=== PATIENT | female | born 1960 | race American Indian/Alaskan Native ===

== ENCOUNTER 2019-01-27 07:37 | Day surgery (SDC) | payer MEDICAID, OTHER ==
--- NOTE | 2019-01-27 07:30 | Anesthesia Consultation ---
Anesthesia Consult and Med Hx Date of service: 01/27/19 - Airway Anesthetic Teeth Evaluation: Partials ROM Head & Neck: Adequate Mental/Hyoid Distance: Adequate Mallampati Class: Class II Intubation Access Assessment: Probably Good - Pulmonary Exam CTA: Yes - Cardiac Exam Cardiac Exam: RRR - Pre-Operative Health Status ASA Pre-Surgery Classification: ASA3 Proposed Anesthetic Plan: General - Pulmonary Hx Smoking: No Hx Respiratory Symptoms: No Hx Sleep Apnea: No - Cardiovascular System Hx Hypertension: No Hx Heart Attack/AMI: No Hx Cardia Arrhythmia: No Hx Valvular Heart Disease: No (MUGA TESTING 01/2018) - Central Nervous System Hx Neuromuscular Disorder: No Hx Psychiatric Problems: No - Gastrointestinal Hx Gastroesophageal Reflux Disease: No - Endocrine Hx Renal Disease: No Hx Liver Disease: No Hx Insulin Dependent Diabetes: No Hx Thyroid Disease: No - Hematic Hx Sickle Cell Disease: No - Other Systems Hx Alcohol Use: Yes (OCCA) Hx Substance Use: No Hx Cancer: Yes Hx Obesity: Yes (BMI 56.7) - Additional Comments Anesthesia Medical History Comments: No GAC, No FHAC
--- NOTE | 2019-01-27 07:31 | Anesthesia Day of Surgery ---
Anesthesia Day of Surgery - Day of Surgery Patient Examined: Yes Patient H&P Reviewed: Yes Patient is NPO: Yes Beta Blockers: No (N/A) Cardiac Clearance: No (N/A) Pulmonary Clearance: No (N/A)
[~2019-01-27 07:37] MED LIST: ANCEF/STERILE WATER 2 GM/20 ML 2 GM/20 ML SYRINGE IV NR; DIPRIVAN 10 MG/ML IV ONE; HEPARIN 10,000 UNITS/10 ML ONE; LACTATED RINGERS 1,000 ML IV SCH; MARCAINE 0.5% INFILTRATI ONE; NACL 0.9% 0 ML ONE; NACL 0.9% 250ML 250 ML ONE; NACL P/F VIAL (10 ML) 10 ML ONE; NEURONTIN PO SCH; SUBLIMAZE ONE; XYLOCAINE 1% 20 mL ONE; XYLOCAINE MPF 2% ONE
[2019-01-27] MEDS ORDERED: SUBLIMAZE IV PRN (07:50)
[2019-01-27] MEDS ORDERED: HEPARIN 10,000 UNITS/10 ML IV ONE (08:23)
[2019-01-27] MEDS ORDERED: MARCAINE 0.5% INFILTRATI ONE (08:24)
[2019-01-27] MEDS ORDERED: NACL 0.9% 250ML IV ONE (08:24)
[2019-01-27] MEDS ORDERED: XYLOCAINE 1% 20 mL INFILTRATI ONE (08:25)
[2019-01-27] MEDS ORDERED: NACL 0.9% IR ONE (08:26)
--- NOTE | 2019-01-27 09:06 | Short Stay Summary ---
Short Stay Documentation Date of service: 01/27/19 - History H&P: obtained from office - Allergies and Medications Current Medications: Allergies codeine Adverse Reaction (Verified 01/25/19 15:44) Nausea Home Medications Medication Instructions Recorded Confirmed Last Taken Type Desloratadine/Pseudoephedrine 1 each PO BID 01/25/19 01/27/19 01/26/19 10:00 History [Clarinex-D 12 Hour Tablet] Ondansetron (Nf) [Zofran TAB] 8 mg PO PRN PRN 01/25/19 01/25/19 Unknown History Active Medications Fentanyl (Sublimaze) 50 mcg IV Q5MIN PRN PRN Reason: Pain , Severe (7-10) Stop: 01/27/19 20:00 Cefazolin Sodium (Ancef/Sterile Water 2 Gm/20 Ml) 2 gm in 20 mls @ 80 mls/hr IV PREOP NR; Protocol Stop: 01/27/19 23:59 Lactated Ringer's (Lactated Ringers) 1,000 mls @ 125 mls/hr IV DIRECT MIGEL Last Admin: 01/27/19 07:32 Dose: 125 mls/hr Documented by: - Physical exam Integumentary: no rash, no abnormal pigmentation Lungs: Normal air movement Neurological: Normal speech - Brief post op/procedure progress note Date of procedure: 01/27/19 (dictation:[id number]) Pre-op diagnosis: right breast cancer Post-op diagnosis: same Procedure: US guided port placement Anesthesia: GETA Findings: enlarged heart. sharp turn at union of innominate veins and SVC. Surgeon: MICHAEL ZHAO Estimated blood loss: minimal Pathology: none Condition: stable - Hospital course Hospital course: uneventful - Disposition Condition at discharge: Stable Disposition: DC-01 TO HOME OR SELFCARE Short Stay Discharge Plan Activity: no restrictions, other Diet: regular Wound: open to air, keep clean and dry, other (apply ice pack to left upper chest/neck for 10-15min/4-5 times a day. May shower tomorrow. Pat dry wounds) Special Instructions: no heavy lifting (or strenuous activity for 1 week) Additional Instructions: may use tylenol or ibuprofen for pain - follow instructions on bottle Follow up with: RON JOHNSON [Other] - 7 Days
[2019-01-27] MEDS ORDERED: TORADOL ONE (09:15)
[2019-01-27] MEDS ORDERED: DECADRON ONE (09:15)
[2019-01-27] MEDS ORDERED: ZOFRAN ONE (09:15)
--- NOTE | 2019-01-27 09:28 | Fluoroscopy Report ---
Single view chest: Next History: Right breast cancer. Findings: Mild cardiomegaly. Trachea is midline. Stable left [id number] with the tip in the proximal superior vena cava. No pneumothorax. Right perihilar infiltrate. Normal CP angles. Impression: Right perihilar infiltrate probably discoid atelectasis or pneumonitis. Stable left port.
--- NOTE | 2019-01-27 11:47 | Operative Report ---
PREOPERATIVE DIAGNOSIS: Right breast cancer. POSTOPERATIVE DIAGNOSIS: Right breast cancer. PROCEDURE: 1. Insertion of tunneled central venous catheter with subcutaneous port. 2. Ultrasound guidance for vascular access. ATTENDING PHYSICIAN: Merlyn Shafer MD ANESTHESIA: General. ESTIMATED BLOOD LOSS: Less than 10 mL. FLUIDS: 700 mL. FINDINGS: The patient had an enlarged heart. She was also noted to have probably a sharp turn where the left innominate comes into the SVC. The guidewire took multiple passes in order to go down into the SVC and subsequently into the heart. IMPLANT: Smart Port. COMPLICATIONS: None. DISPOSITION: Stable, transferred to Recovery Room. INDICATIONS: This is a 58-year-old female who was recently diagnosed with right breast cancer. The patient was assessed to be in need for chemotherapy. Request was made for port placement. Procedure, risks, benefits were explained to the patient. Risks included but were not limited to infection, bleeding, pain, injury to surrounding structures, possible need for further procedures in the future. The patient understood and consented. OPERATIVE NOTE: The patient was brought to the operating room and placed on the table in supine position. After adequate general anesthesia was established, roll was placed behind the shoulders. SCDs were in place. Antibiotics have been administered. Sterile prep and drape was done, time-out was called. Under ultrasound guidance, I evaluated both the left internal jugular vein and the subclavian vein. The left internal jugular vein was easily identified, widely patent. There was no evidence of any stenosis or clots. The left subclavian vein was difficult to identify and therefore not a reasonable target. We proceeded to go with the left internal jugular vein. 1% lidocaine and 0.5% Marcaine were used to anesthetize the planned access point. A small incision was made. Under ultrasound guidance, I followed echogenic needle into the left internal jugular vein. I could see the needle going to the vein and then I positioned the tip in the center of the vein, had good aspiration of venous blood. Guidewire was easily passed. We checked with fluoroscopy. The position of the guidewire as mentioned above, it got hung up at the junction of the innominate vein and SVC. Multiple passes were required. Ultimately, I felt that as we were clearly in the venous portion of the system, then I am going to take the wire out shortly anyway after the sheath is passed, so I left it as is and secured it to the drape. I injected the planned port site. We made an oblique incision along the lines of tension of the skin. Pocket was created with both electrocautery and blunt dissection, port easily fit. I injected the planned site for the tunneler up to the neck. I passed the tunneler without any difficulty and brought it out the opening where the guidewire was. Catheter then was secured and we proceeded to pass the sheath and dilator over the guidewire. I watched with fluoroscopy as we passed it. The guidewire was freely mobile throughout the entire time as I periodically checked. The sheath was passed in its entirety all the way down, guidewire and dilator were removed easily. Initially, we had venous blood coming out of the sheath. The catheter was inserted. Again, we had difficulty with the catheter not wanting to go down to the atriocaval junction. Ultimately with further manipulation, we were able to get it to go down. Thereafter, I adjusted its position. It seemed to be deep at this point, but the patient was a large woman, so I thought perhaps she may need extra length. We then cut the catheter so that we had an appropriate length based on the fluoroscopic images. I attached the port. I was able to easily aspirate and flush with a dilute heparinized saline and inserted the port into the pocket. We did another fluoroscopy. At this point, we saw that the tip now was way in the right ventricle and so I felt that indeed we did not need that extra length that I was concerned about. I pulled about 4 cm out watching under fluoroscopy. I got the tip to be near the vertebral body that was about 2 vertebral bodies below the sylwia. This was the location that I was shooting for. I modified the length of the catheter and then reattached the port. We aspirated and flushed again with dilute heparinized saline. The collar was placed over the port, locking solution was then done. There was no active bleeding. Wound was clean. I closed the dermis with interrupted 3-0 Vicryl sutures. Skin sites were closed with 4-0 Monocryl subcuticular stitch. The skin was cleaned and dried. Dermabond was placed. I spoke with the family after the end of the case. The patient tolerated the procedure well. All counts were correct. Chest x-ray at the end showed the catheter tip had retracted back to the SVC; perhaps with change in position, the catheter got pulled back; perhaps with the weight of the breast, the port got pulled down; however, we still were in the location where she should be able to easily aspirate blood for blood draws and be able to get chemotherapy. JOB# [id number] VALDO/JOSIAS
[2019-01-27 18:04] VITALS: BP 124/60
--- NOTE | 2019-01-28 09:07 | Post Anesthesia Evaluation ---
- Post Anesthesia Evaluation Patient Participated: Yes Airway Patent: Yes Stable Respiratory Function: Yes Nausea/Vomiting: No Temp > 96.8F: Yes Pain Manageable: Yes Adequeate Hydration: Yes Anesthesia Complications: No Block Receding Appropriately: Not Applicable Patient on Ventilator: No Other Comments: From Yesterday
== END 2019-01-27 11:20 | disposition home or self-care (01) ==
LOC: OR 07:37
PROVIDERS: ATTEND Surgery
DX: C50.911 Malignant neoplasm of unspecified site of right female breast (principal); E66.9 Obesity, unspecified; Z68.43 Body mass index [BMI] 50.0-59.9, adult; Z90.710 Acquired absence of both cervix and uterus; Z98.891 History of uterine scar from previous surgery; Z72.89 Other problems related to lifestyle; Z98.890 Other specified postprocedural states; Z79.899 Other long term (current) drug therapy; Z88.5 Allergy status to narcotic agent
CPT/HCPCS: 36561; 76937; 77001; C1788; J0690; J1100; J1644; J1885; J2405; J2704; J3010; J7050; J7120

== ENCOUNTER 2019-02-03 16:39 | Outpatient (CLI) | payer MEDICAID | END 2019-02-03 16:40 | disposition home or self-care (01) | LOC: LABHHL 16:39 | PROVIDERS: ATTEND Surgery | DX: N63.11 Unspecified lump in the right breast, upper outer quadrant (principal); E66.9 Obesity, unspecified; Z90.710 Acquired absence of both cervix and uterus | CPT/HCPCS: 88305 ==

== ENCOUNTER 2019-03-31 09:52 | Day surgery (SDC) | payer MEDICAID ==
--- NOTE | 2019-03-31 08:22 | Short Stay Summary ---
Short Stay Documentation Date of service: 03/31/19 - History H&P: obtained from office - Allergies and Medications Current Medications: Allergies codeine Adverse Reaction (Verified 03/30/19 11:35) Nausea Home Medications Medication Instructions Recorded Confirmed Last Taken Type Desloratadine/Pseudoephedrine 1 each PO BID 01/25/19 03/30/19 01/26/19 10:00 History [Clarinex-D 12 Hour Tablet] Ondansetron (Nf) [Zofran TAB] 8 mg PO PRN PRN 01/25/19 03/30/19 Unknown History Active Medications Cefazolin Sodium (Ancef/Sterile Water 2 Gm/20 Ml) 2 gm in 20 mls @ 80 mls/hr IV PREOP NR; Protocol Stop: 03/31/19 23:59 Lactated Ringer's (Lactated Ringers) 1,000 mls @ 75 mls/hr IV DIRECT MIGEL - Physical exam General appearance: no acute distress Integumentary: no rash, no abnormal pigmentation Lungs: Normal air movement Neurological: Normal speech - Brief post op/procedure progress note Date of procedure: 03/31/19 (dictation:[id number]) Pre-op diagnosis: port malfunction Post-op diagnosis: same Procedure: Infusion port replacement IVF - 1200cc EBL 40cc Anesthesia: GETA Findings: difficulty to negotiate innominate vein and SVC junction Surgeon: MICHAEL ZHAO Estimated blood loss: minimal Pathology: none Condition: stable - Hospital course Hospital course: uneventful - Disposition Condition at discharge: Stable Disposition: DC-01 TO HOME OR SELFCARE Short Stay Discharge Plan Activity: other (no driving while using pain meds) Diet: regular Wound: open to air, keep clean and dry Special Instructions: no heavy lifting (or strenuous activity for 1 week) Additional Instructions: Apply an ice pack to the wounds for 10 to 20 minutes at a time. Do this at least 4 to 5 times a day. You may shower tomorrow. Pat dry the wounds. For the 1st 2 days, use ibuprofen and Tylenol on a scheduled basis. Take 600 mg of ibuprofen with food every 6 hours. Take 500 mg of Tylenol every 6 hours. Alternate these 2 medications. As an example, take the ibuprofen 1st. 3 hours later, take the Tylenol. After another 3 hours, take the ibuprofen again. Keep alternating this pattern for the 1st 2 days. As you can see, you will be taking each medicine every 6 hours. After 2 days, take the medications as needed for pain. KEEP DRESSING CLEAN AND DRY.WOUND OPEN TO AIR.DO NOT RUB OR SCRUB INCISION SITE. NO STRENOUS ACTIVITY OR HEAVY LIFTING FOR ONE WEEK. NO DRIVING WHILE TAKING PAIN MEDS. FOLLOW SURGEON INSTRUCTION. CALL FOR F/;U APPT. Follow up with: VALERIE CASTAÑEDA MD [Staff Physician] - 7 Days Forms: [facility]
[~2019-03-31 09:52] MED LIST changes: -DIPRIVAN 10 MG/ML IV ONE; -HEPARIN 10,000 UNITS/10 ML ONE; -MARCAINE 0.5% INFILTRATI ONE; -NACL 0.9% 0 ML ONE; -NACL 0.9% 250ML 250 ML ONE; -NACL P/F VIAL (10 ML) 10 ML ONE; -NEURONTIN PO SCH; -SUBLIMAZE ONE; -XYLOCAINE 1% 20 mL ONE; -XYLOCAINE MPF 2% ONE
[2019-03-31] MEDS ORDERED: ZOFRAN ONE ×2 (10:34→14:35)
[2019-03-31] MEDS ORDERED: DECADRON ONE ×2 (10:34→12:40)
[2019-03-31] MEDS ORDERED: XYLOCAINE CARDIAC IV ONE (10:34)
[2019-03-31] MEDS ORDERED: SUBLIMAZE ONE (10:35)
[2019-03-31] MEDS ORDERED: DIPRIVAN 10 MG/ML IV ONE ×2 (10:35→12:19)
[2019-03-31] MEDS ORDERED: SUBLIMAZE IV PRN (10:54)
[2019-03-31] MEDS ORDERED: ZOFRAN IV PRN (10:54)
--- NOTE | 2019-03-31 10:54 | Anesthesia Consultation ---
Anesthesia Consult and Med Hx - Airway Anesthetic Teeth Evaluation: Dentures ROM Head & Neck: Adequate Mental/Hyoid Distance: Adequate Mallampati Class: Class II Intubation Access Assessment: Good - Pulmonary Exam CTA: Yes - Cardiac Exam Cardiac Exam: RRR - Pre-Operative Health Status ASA Pre-Surgery Classification: ASA3 Proposed Anesthetic Plan: General (Hx of breast cancer on chemo , clinically obese but no other medical isssues ), MAC - Pulmonary Hx Smoking: No Hx Respiratory Symptoms: No Hx Sleep Apnea: No - Cardiovascular System Hx Hypertension: No Hx Heart Attack/AMI: No Hx Cardia Arrhythmia: No Hx Valvular Heart Disease: No (MUGA TESTING 01/2018) - Central Nervous System Hx Neuromuscular Disorder: No Hx Psychiatric Problems: No - Gastrointestinal Hx Gastroesophageal Reflux Disease: No - Endocrine Hx Renal Disease: No Hx Liver Disease: No Hx Insulin Dependent Diabetes: No Hx Thyroid Disease: No - Hematic Hx Sickle Cell Disease: No - Other Systems Hx Alcohol Use: Yes (OCCA) Hx Substance Use: No Hx Cancer: Yes Hx Obesity: Yes (BMI 56.7)
--- NOTE | 2019-03-31 10:54 | Anesthesia Day of Surgery ---
Anesthesia Day of Surgery - Day of Surgery Patient Examined: Yes Patient H&P Reviewed: Yes Patient is NPO: Yes
[2019-03-31] MEDS ORDERED: NACL 0.9% 250ML 250 ML ONE (11:52)
[2019-03-31] MEDS ORDERED: MARCAINE-EPI 0.5%-1:200,000 INFILTRATI ONE (11:52)
[2019-03-31] MEDS ORDERED: HEPARIN 10,000 UNITS/10 ML ONE (11:52)
[2019-03-31] MEDS ORDERED: XYLOCAINE 1% 20 mL ONE (11:52)
[2019-03-31] MEDS ORDERED: QUELICIN ONE (12:19)
[2019-03-31] MEDS ORDERED: PROAIR IH ONE (12:40)
[2019-03-31] MEDS ORDERED: ZEMURON IV ONE (12:40)
[2019-03-31] MEDS ORDERED: MARCAINE-EPI/PF 0.5%-1:200,000 INFILTRATI ONE ×2 (12:58)
[2019-03-31] MEDS ORDERED: XYLOCAINE 1% 20 mL INFILTRATI ONE ×2 (12:58)
[2019-03-31] MEDS ORDERED: HEPARIN IR ONE (13:00)
[2019-03-31] MEDS ORDERED: NACL 0.9% 250ML IR ONE (13:00)
[2019-03-31] MEDS ORDERED: HEPARIN 10,000 UNITS/10 ML IR ONE (13:55)
[2019-03-31] MEDS ORDERED: ROBINUL ONE (14:04)
[2019-03-31] MEDS ORDERED: BLOXIVERZ ONE (14:04)
[2019-03-31] MEDS ORDERED: NEO SYNEPHRINE/NS Syringe(OR USE) IV ONE (14:13)
[2019-03-31] MEDS ORDERED: PHENERGAN PR PRN (15:13)
[2019-03-31] MEDS ORDERED: REGLAN IV ONE (15:13)
[2019-03-31] MEDS ORDERED: REGLAN ONE (15:16)
--- NOTE | 2019-03-31 15:22 | Fluoroscopy Report ---
FLUOROSCOPY CENTRAL VENOUS CATHETER PLACEMENT INDICATION: Breast cancer, [id number] exchange. COMPARISON: 01/27/2019 FINDINGS: Portable, frontal chest radiograph again demonstrates a left chest port with its tip though now at the cavoatrial junction, directed inferiorly. Stable exaggerated cardiomediastinal silhouette/cardiomegaly. Right hemidiaphragm approximately 3 cm higher than the left. Otherwise clear lungs. Multilevel thoracic spondylosis. EKG leads. CONCLUSION: Left chest port exchange, as above. Thank you for the opportunity to participate in this patient's care.
[2019-03-31 15:45] VITALS: BP 136/76
--- NOTE | 2019-04-01 10:55 | Operative Report ---
PREOPERATIVE DIAGNOSIS: Infusion port malfunction. POSTOPERATIVE DIAGNOSIS: Infusion port malfunction. PROCEDURE: Infusion port replacement. ATTENDING PHYSICIAN: Merlyn Shafer MD ANESTHESIA: General. ESTIMATED BLOOD LOSS: 40 mL. FLUIDS: 1200 mL. FINDINGS: Challenging vascular anatomy to navigate Implant Smart Port. DRAINS: None. COMPLICATIONS: None SPECIMENS: No specimens. Stable transport to Recovery Room. INDICATIONS: This is a 58-year-old female with a history of breast cancer, whom we had previously placed an infusion port on the left side about 2 months ago. She returns to the office with complaints that the infusion port is no longer working. Radiographic images showed the catheter to be kink and retracted. Plan was made for replacement. Procedure, risks and benefits were explained to the patient. Risks included but were not limited to infection, bleeding, pain, injury to surrounding structures, possible need for port replacement and/or removal. The patient understood and consented. OPERATIVE NOTE: The patient was brought to the OR and placed on table in supine position. After adequate general anesthesia was established, the patient was prepped and draped in the usual sterile fashion. Both arms were tucked. Antibiotics had been administered prior to the start of the case. SCDs were in place. A towel roll was then under the shoulders. Time-out was called. Initially, we had plans to place the port on the right side; however, I spoke with the patient at length prior to the case and suggested that we try if possible to exchange the catheter over a guidewire if the guidewire passed through. We did check on the back table and it did easily pass through. Therefore, we got a longer vascular wire that was 150 cm to allow us to have enough length for the exchange. I began by anesthetizing the planned incision sites. These were her old sites on the left side. They were opened sharply. Dissection was carried down with electrocautery down to the port. Port was freed from the surrounding tissue. We did have a small little area of bleeding on the medial aspect that we controlled with electrocautery. Thereafter, I dissected out the port, the catheter and then the vascular access site in the neck, taking precaution to have the patient in Trendelenburg and clamping the catheter as we were manipulating it to minimize any aspiration of air when we disconnected the port. We ultimately passed a guidewire through the catheter. Of note, when we had the breast pulled down, the kink that was noted at the port site resolved, so I think part of this kinking problem was due to body habitus; however, the catheter had retracted quite a bit, so it was still worthwhile to replace the catheter and get into a better position. A guidewire was passed. We checked multiple times with fluoroscopy to make sure the guidewire was going in the direction we wanted. Because of her difficult vascular anatomy, the guidewire had difficulty getting to the right side of the heart. Initially, we had difficulty getting it to go down into the superior vena cava. Once we started to make some progress, it went up into the right innominate vein. Ultimately with numerous position changes and such, we were able to finally get the wire to go down into the right side of the heart and we also had confirmation with a small amount of ectopy intermittently and we subsequently pulled back the wire. This took a fair amount of time, which prolonged the case, this added to the complexity of it. Once we had the guidewire in the right position, we then removed the catheter under direct fluoroscopic vision to minimize the risk of the guidewire being pulled out. Once we had done that, then we passed another catheter over the guidewire into the proper position. We initially had it into the distal part of the right atrium and a little bit into the ventricle. We tried to pull it back so that we had no ectopy. Ultimately, we got the catheter further than what it had been preoperatively, and it was sitting at the cavoatrial junction. I wanted a little bit further in, we passed the catheter over the guidewire into the right position and we did have it more distal than what was there preoperatively. We trimmed the catheter attached to the port and at this time, I secured the port both inferiorly to the underlying tissue, and I put a stitch around the connection between the port and the catheter down to the underlying tissue to hopefully prevent it from slipping up again. Both of these sutures were Vicryl. We tested the port with heparinized saline. It aspirated and flushed very easily. Fluoroscopy showed it to be in good position. We also had released the left breast at this point to minimize the breast retracting up and then causing a problem with the catheter, it still continued to work very well. We locked the port with concentrated heparin. Additional local was injected into both sites. Deep tissue was closed with interrupted 3-0 Vicryl stitches. Skin was closed with 4-0 Monocryl subcuticular stitches. The patient tolerated the procedure well and there were no complications. Chest x-ray showed the catheter to be in good position without any kinking. [facility]# [id number] VALDO/JOSIAS
== END 2019-03-31 16:20 | disposition home or self-care (01) ==
LOC: OR 09:52
PROVIDERS: ATTEND Surgery
DX: T82.898A Other specified complication of vascular prosthetic devices, implants and grafts, initial encounter (principal); C50.919 Malignant neoplasm of unspecified site of unspecified female breast; E66.9 Obesity, unspecified; Z88.5 Allergy status to narcotic agent; Z79.899 Other long term (current) drug therapy; Z68.43 Body mass index [BMI] 50.0-59.9, adult; Z90.710 Acquired absence of both cervix and uterus; Z98.891 History of uterine scar from previous surgery; Z72.89 Other problems related to lifestyle; Z98.890 Other specified postprocedural states; Y83.9 Surgical procedure, unspecified as the cause of abnormal reaction of the patient, or of later complication, without mention of misadventure at the time of the procedure; Y92.89 Other specified places as the place of occurrence of the external cause
CPT/HCPCS: 36561; 36590; 77001; 88300; C1788; J0330; J0690; J1100; J1644; J2001; J2370; J2405; J2704; J2710; J2765; J3010; J7050; J7120; 88302

== ENCOUNTER 2019-09-15 09:04 | Inpatient (IN) | payer OTHER ==
--- NOTE | 2019-09-09 22:18 | Anesthesia Consultation ---
Anesthesia Consult and Med Hx Date of service: 09/09/19 - Airway Anesthetic Teeth Evaluation: Dentures (upper) ROM Head & Neck: Adequate Mental/Hyoid Distance: Adequate Mallampati Class: Class I Intubation Access Assessment: Probably Good - Pulmonary Exam CTA: Yes - Cardiac Exam Cardiac Exam: RRR - Pre-Operative Health Status ASA Pre-Surgery Classification: ASA3 Proposed Anesthetic Plan: General Nerve Block: PEC - Pulmonary Hx Smoking: No Hx Respiratory Symptoms: No - Cardiovascular System Hx Hypertension: No Hx Heart Attack/AMI: No - Central Nervous System CVA: No - Gastrointestinal Hx Gastroesophageal Reflux Disease: No - Endocrine Hx Renal Disease: No Hx Liver Disease: No Hx Insulin Dependent Diabetes: No Hx Non-Insulin Dependent Diabetes: No Hx Thyroid Disease: No - Other Systems Hx Cancer: Yes (Breast Ca s/p chemo (right chest port in place)) Hx Obesity: Yes (BMI 53) - Additional Comments Anesthesia Medical History Comments: No hx anesthetic complications.
[~2019-09-15 09:04] MED LIST changes: +GABAPENTIN PO NR; +SUBLIMAZE IV PRN; +VERSED IV NR
[2019-09-15] MEDS ORDERED: DECADRON ONE (09:31)
[2019-09-15] MEDS ORDERED: MARCAINE-EPI 0.25%-1:200,000 INFILTRATI ONE (09:31)
[2019-09-15] MEDS ORDERED: DILAUDID IV PRN (09:58)
--- NOTE | 2019-09-15 09:58 | Anesthesia Day of Surgery ---
Anesthesia Day of Surgery - Day of Surgery Patient Examined: Yes Patient H&P Reviewed: Yes Patient is NPO: Yes
[2019-09-15] MEDS ORDERED: METHYLENE BLUE ONE ×2 (10:45→17:30)
[2019-09-15] MEDS ORDERED: ZEMURON IV ONE ×2 (11:01→12:06)
[2019-09-15] MEDS ORDERED: DIPRIVAN 10 MG/ML IV ONE (11:01)
[2019-09-15] MEDS ORDERED: DILAUDID ONE (11:01)
[2019-09-15] MEDS ORDERED: XYLOCAINE MPF 2% ONE (11:01)
[2019-09-15] MEDS ORDERED: METHYLENE BLUE IRRIGATION ONE ×2 (11:24→18:03)
[2019-09-15] MEDS ORDERED: NACL P/F VIAL (10 ML) INFILTRATI ONE (11:24)
[2019-09-15] MEDS ORDERED: PHENYLEPHRINE/NS Syringe 1,000 MCG/10 ML IV ONE ×2 (12:06→13:56)
[2019-09-15] MEDS ORDERED: LACTATED RINGERS 1,000 ML ONE ×3 (13:14→16:52)
[2019-09-15] MEDS ORDERED: WATER FOR IRRIG STERILE IR ONE (13:15)
[2019-09-15] MEDS ORDERED: ANCEF ONE ×4 (16:06→19:47)
[2019-09-15] MEDS ORDERED: NACL 0.9% 1000 ML 1,000 ML ONE (16:53)
[2019-09-15] MEDS ORDERED: BACITRACIN ONE (16:53)
[2019-09-15] MEDS ORDERED: GENTAMICIN ONE (16:53)
[2019-09-15] MEDS ORDERED: BENADRYL PO PRN (17:09)
[2019-09-15] MEDS ORDERED: REGLAN PO PRN (17:09)
[2019-09-15] MEDS ORDERED: TYLENOL PO PRN (17:09)
[2019-09-15] MEDS ORDERED: SODIUM CHLORIDE FLUSH SYRINGE 10 ML IV PRN (17:09)
[2019-09-15] MEDS ORDERED: ZOFRAN IV PRN (17:09)
[2019-09-15] MEDS ORDERED: DILAUDID PO PRN (17:09)
--- NOTE | 2019-09-15 17:09 | Operative Report ---
Operative Report Operative Report: Operative Report: Date of Service: September 15, 2019 Preoperative diagnosis: Right breast cancer of the upper outer quadrant Postoperative diagnosis: Same Procedure: Right total mastectomy with sentinel lymph node biopsy and left total mastectomy Surgeon: Lore Gross M.D. Work Measurement Engineer: Jena Leone M.D. Anesthesia: Gen. Findings: Right breast clips present within right total mastectomy. 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 She completed neoadjuvant chemotherapy of AC/T and recommendations were to proceed with a right mastectomy given multicentric right breast cancer. She wished to proceed with a prophylactic left mastectomy and placement of bilateral tissue expanders in conjunction with plastic surgery. She wished to proceed with the above procedure. Procedure in detail: The patient was taken to the operating room and was placed supine. Gen. anesthesia was administered. The right nipple was injected with radioisotope and 1 cc of methylene blue. Bilateral chest and axillas were preppe d and draped in the normal sterile operative fashion. Timeout was performed. Typical mastectomy incision markings were made. Attention was taken toward the left breast first. First began raising of the superior flap to the level of the clavicle superiorly and posteriorly to the pectoralis muscle. Followed by raising of the medial flap to the level of the sternum and posteriorly to the pectoralis muscle. Followed by raising of the lateral flap to the level of the latissimus dorsi muscle and taken down posteriorly. Followed by raising of the inferior flap to the level of the inframammary fold taken posterior to the pectoralis muscle. The mastectomy/breast was removed from the pectoralis muscle without incident. The specimen was appropriately marked and sent to pathology. Hemostasis was obta ined. The port was noted and unharmed. Attention was taken towards the right breast. A gamma probe was inserted into the axilla to identify the sentinel lymph node location with minimal uptake noted. A skin incision was made with a 10 blade knife and dissection taken down to the subcutaneous tissues. First began raising of the superior flap to the level of the clavicle superiorly and posteriorly to the pectoralis muscle. Followed by raising of the medial flap to the level of the sternum and posteriorly to the pectoralis muscle. Followed by raising of the lateral flap to the level of the latissimus dorsi muscle and taken down posteriorly. The gamma probe was inserted into the axilla, the axillary fascia was opened and 3 sentinel lymph nodes were identified with the gamma probe and nodes noted for blue dye. Axilla was noted for reactive tissue. SLNs were dissected free and sent to pathology. Lymph nodes were sent to pathology with findings negative for malignancy noted on frozen section and reactive changes present and mucin present as well. Then proceeded with raising of the inferior flap to the level of the inframammary fold taken posterior to the pectoralis muscle. The mastectom y/breast was removed from the pectoralis muscle without incident. The specimen was appropriately marked and sent to radiology with findings of breast clips present of the area of known cancers. The chest wall was irrigated and suctioned. Hemostasis was obtained. Plastic surgery then proceeded with placement of bilateral tissue expanders.
[2019-09-15] MEDS ORDERED: MORPHINE IV PRN (17:11)
--- NOTE | 2019-09-15 17:15 | Short Stay Summary ---
Short Stay Documentation Date of service: 09/15/19 - History H&P: obtained from office - Allergies and Medications Current Medications: Allergies codeine Adverse Reaction (Verified 09/08/19 16:40) Nausea Home Medications Medication Instructions Recorded Confirmed Last Taken Type RX: Desloratadine/Pseudoephedrine 1 each PO BID 01/25/19 09/15/19 09/14/19 10:00 History [Clarinex-D 12 Hour Tablet] B1/B2/Niacin/B12/Protease 1 each PO DAILY 09/08/19 09/15/19 09/14/19 10:00 History [B-Complex with B-12 Tablet] Active Medications Acetaminophen (Tylenol) 650 mg PO Q6H PRN PRN Reason: Pain MILD(1-3)/Fever >100.5/ZAMUDIO Celecoxib (Celebrex) 200 mg PO PREOP NR Stop: 09/15/19 23:59 Last Admin: 09/15/19 10:08 Dose: 200 mg Documented by: Diphenhydramine HCl (Benadryl) 25 mg PO Q8H PRN PRN Reason: Itching Docusate Sodium (Colace) 100 mg PO BID MIGEL Fentanyl (Sublimaze) 100 mcg IV ONCE PRN PRN Reason: sedation for nerve block Stop: 09/15/19 23:59 Last Admin: 09/15/19 10:45 Dose: 100 mcg Documented by: Gabapentin (Neurontin) 300 mg PO PREOP NR Stop: 09/15/19 23:59 Last Admin: 09/15/19 10:08 Dose: 300 mg Documented by: Hydromorphone HCl (Dilaudid) 0.5 mg IV Q10MIN PRN PRN Reason: Pain , Severe (7-10) Stop: 09/15/19 23:00 Hydromorphone HCl (Dilaudid) 2 mg PO Q6H PRN PRN Reason: Pain , Severe (7-10) Lactated Ringer's (Lactated Ringers) 1,000 mls @ 100 mls/hr IV DIRECT MIGEL Last Admin: 09/15/19 10:08 Dose: 100 mls/hr Documented by: Cefazolin Sodium (Ancef/Sterile Water 2 Gm/20 Ml) 2 gm in 20 mls @ 80 mls/hr IV PREOP NR; Protocol Stop: 11/15/19 23:59 Lactated Ringer's (Lactated Ringers) 1,000 mls @ 125 mls/hr IV DIRECT MIGEL Metoclopramide HCl (Reglan) 10 mg PO Q6H PRN PRN Reason: Nausea And Vomiting Midazolam HCl (Versed) 2 mg IV PREOP NR Stop: 09/15/19 23:59 Last Admin: 09/15/19 10:45 Dose: 2 mg Documented by: Morphine Sulfate (Morphine) 2 mg IV Q4H PRN PRN Reason: Pain, Moderate (4-6) Ondansetron HCl (Zofran) 4 mg IV Q8H PRN PRN Reason: N/V unrelieved by Reglan Sodium Chloride (Sodium Chloride Flush Syringe 10 Ml) 10 ml IV PRN PRN PRN Reason: LINE FLUSH - Brief post op/procedure progress note Date of procedure: 09/15/19 Pre-op diagnosis: Right breast cancer of upper outer quadrant Post-op diagnosis: same Procedure: Left total mastectomy; right total mastectomy and SLNB Anesthesia: GETA Findings: 2 right brst clips adn 3 SLNs negative Surgeon: VALERIE CASTAÑEDA Track Production Engineer: ORIN EVANGELISTA Estimated blood loss: other (100-150 ml) Pathology: list Specimen disposition: to lab Condition: stable - Disposition Condition at discharge: Good Disposition: DC/TX-02 SHRT-TRM GEN HOSP IP Short Stay Discharge Plan Activity: other (no heavy lifting) Diet: regular Wound: keep clean and dry Follow up with: FAHEEM SAVAGE MD [Primary Care Provider] - 7 Days VALERIE CASTAÑEDA MD [Staff Physician] - 7 Days
[2019-09-15] MEDS ORDERED: NACL 0.9% 1000 ML 2,000 ML ONE (17:30)
[2019-09-15] MEDS ORDERED: ANCEF IR ONE (17:58)
[2019-09-15] MEDS ORDERED: LACTATED RINGERS 1,000 ML IV SCH (18:00)
[2019-09-15] MEDS ORDERED: BACITRACIN IR ONE (18:00)
[2019-09-15] MEDS ORDERED: NACL 0.9% 1000 ML IR ONE ×3 (18:02)
--- NOTE | 2019-09-15 19:52 | Operative Report ---
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 Allyson Knapp Document Controller: None Anesthesia: General EBL: 50cc Indications: This patient is a 58 year old AAF who previously underwent bilateral breast reconstruction with tissue expanders and FlexHD after mastectomy. She was scheduled for a left axillary node dissection and had successfully completed in-office expansion, so the decision was made to do a joint procedure with Dr. Gross. The benefits as well as the risks of the procedure were explained to the patient in great detail. She was given the opportunity to ask questions. Informed consent was obtained.
--- NOTE | 2019-09-15 20:44 | Post Anesthesia Evaluation ---
- Post Anesthesia Evaluation Patient Participated: Yes Airway Patent: Yes Stable Respiratory Function: Yes Nausea/Vomiting: No Temp > 96.8F: Yes Pain Manageable: Yes Adequeate Hydration: Yes Anesthesia Complications: No
[2019-09-15] MEDS ORDERED: COLACE PO SCH (22:00)
--- NOTE | 2019-09-16 07:44 | Progress Note ---
Assessment and Plan This is a 58 year old lady with Stage II right breast cancer of the upper outer quadrant, POD#1 left total mastectomy and right total mastectomy with SLNB followed by immediate bilateral tissue aerologist placement. 1. No acute events overnight, pain in good control. 2. Bilateral chest incisions healing well, no hematoma. 3. ALBINO drain education. 4. OOB to hallway. 5. D/C planning for today. Subjective Date of service: 09/16/19 Principal diagnosis: Stage II right breast cancer of upper outer quadrant Interval history: POD#1 left total mastectomy; right total mastectomy with SLNB followed by immediate bilateral tissue aerologist placement. Objective - Constitutional Vitals: Vital Signs - 12hr 09/15/19 09/15/19 09/15/19 19:50 19:55 20:00 Temperature 96.6 F L Pulse Rate 75 74 73 Respiratory 14 18 17 Rate Blood Pressure 106/53 100/55 104/52 Blood Pressure [Left] O2 Sat by Pulse 100 100 100 Oximetry 09/15/19 09/15/19 09/15/19 20:15 20:30 20:45 Temperature 97.4 F L Pulse Rate 71 71 74 Respiratory 15 15 15 Rate Blood Pressure 112/58 127/69 129/63 Blood Pressure [Left] O2 Sat by Pulse 100 100 100 Oximetry 09/15/19 09/16/19 09/16/19 23:30 01:42 04:00 Temperature 98.6 F 97.9 F 98.7 F Pulse Rate 78 74 69 Respiratory 18 18 18 Rate Blood Pressure 121/58 Blood Pressure 114/78 108/67 [Left] O2 Sat by Pulse 100 Oximetry General appearance: Present: no acute distress - EENT Eyes: PERRL, EOM intact ENT: hearing intact, clear oral mucosa, poor dentition Ears: bilateral: normal - Neck Neck: supple, normal ROM - Respiratory Respiratory effort: normal - Breasts Breasts: other (bilateral chest incisions healing well, no hematoma, bandages clean and intact; ALBINO drains to bulb suction) - Cardiovascular Rhythm: regular Extremities: no ischemia, pulses intact, pulses symmetrical, No edema, normal temperature, normal color, Full ROM - Gastrointestinal General gastrointestinal: Present: soft, non-tender, non-distended Rectal Exam: deferred - Genitourinary Female genitourinary: deferred - Integumentary Integumentary: clear, warm, dry - Musculoskeletal Musculoskeletal: strength equal bilaterally - Neurologic Neurologic: CNII-XII intact, moves all extremities - Psychiatric Psychiatric: appropriate mood/affect, intact judgment & insight, memory intact, cooperative Medications & Allergies - Medications Allergies/Adverse Reactions: Allergies codeine Adverse Reaction (Verified 09/08/19 16:40) Nausea Home Medications: Home Medications Medication Instructions Recorded Confirmed Last Taken Type Desloratadine/Pseudoephedrine 1 each PO BID 01/25/19 09/15/19 09/14/19 10:00 History [Clarinex-D 12 Hour Tablet] B1/B2/Niacin/B12/Protease 1 each PO DAILY 09/08/19 09/15/19 09/14/19 10:00 History [B-Complex with B-12 Tablet] Active Medications: Generic Name Dose Route Start Last Admin Trade Name Freq PRN Reason Stop Dose Admin Acetaminophen 650 mg 09/15/19 17:09 Tylenol PO Q6H PRN Pain MILD(1-3)/Fever >100.5/ZAMUDIO Diphenhydramine HCl 25 mg 09/15/19 17:09 Benadryl PO Q8H PRN Itching Docusate Sodium 100 mg 09/15/19 22:00 Colace PO BID MIGEL Hydromorphone HCl 2 mg 09/15/19 17:09 09/16/19 07:26 Dilaudid PO 2 mg Q6H PRN Administration Pain , Severe (7-10) Lactated Ringer's 1,000 mls @ 100 mls/hr 09/15/19 06:00 09/15/19 10:08 Lactated Ringers IV 100 mls/hr DIRECT MIGEL Administration Cefazolin Sodium 2 gm in 20 mls @ 80 mls/hr 09/15/19 05:30 Ancef/Sterile Water 2 Gm/20 Ml IV 11/15/19 23:59 PREOP NR Protocol Lactated Ringer's 1,000 mls @ 125 mls/hr 09/15/19 18:00 09/16/19 02:07 Lactated Ringers IV 125 mls/hr DIRECT MIGEL Administration Metoclopramide HCl 10 mg 09/15/19 17:09 Reglan PO Q6H PRN Nausea And Vomiting Morphine Sulfate 2 mg 09/15/19 17:11 09/16/19 02:06 Morphine IV 2 mg Q4H PRN Administration Pain, Moderate (4-6) Ondansetron HCl 4 mg 09/15/19 17:09 Zofran IV Q8H PRN N/V unrelieved by Vlad Sodium Chloride 10 ml 09/15/19 17:09 Sodium Chloride Flush Syringe 10 Ml IV PRN PRN LINE FLUSH
--- NOTE | 2019-09-16 08:43 | XRay Report ---
SPECIMEN RADIOGRAPH RIGHT BREAST INDICATION: RT BREAST CA. COMPARISON: 08/10/2019 right breast ultrasound FINDINGS: A single biopsy clip is identified within the specimen. No distinct mass. IMPRESSION: Excision of the known cancer. Signer Name: Jaziel Reyes MD Signed: 09/16/2019 8:38 AM Workstation Name: [id number]
[2019-09-16 12:26] VITALS: BP 103/47
== END 2019-09-16 12:00 | disposition home or self-care (01) | DRG 580 ==
LOC: OR 09:04 → OB 17:09
PROVIDERS: ADMIT Surgery; ATTEND Surgery
PROC: 07B50ZX Excision of Right Axillary Lymphatic, Open Approach, Diagnostic (ICD-10-PCS; principal; 2019-09-15)
PROC: 0HTV0ZZ Resection of Bilateral Breast, Open Approach (ICD-10-PCS; 2019-09-15)
PROC: 0HHV0NZ Insertion of Tissue Expander into Bilateral Breast, Open Approach (ICD-10-PCS; 2019-09-15)
DX: C50.411 Malignant neoplasm of upper-outer quadrant of right female breast (principal); Z68.43 Body mass index [BMI] 50.0-59.9, adult; E66.9 Obesity, unspecified; Z88.5 Allergy status to narcotic agent; Z79.899 Other long term (current) drug therapy; Z92.21 Personal history of antineoplastic chemotherapy
CPT/HCPCS: 64450; 76098; 78800; 88307; 88309; 88331; 88333; 88342; G0378; A9541; C1789; J0690; J1100; J1170; J1580; J2250; J2270; J2370; J2704; J3010; J7030; J7120; Q4128; Q9968

== ENCOUNTER 2019-11-29 12:34 | Day surgery (SDC) | payer OTHER ==
[2019-11-29] MEDS ORDERED: HYDROmorphone 1 MG/1 ML INJ ONE (13:39)
[2019-11-29] MEDS ORDERED: PROPOFOL 200 MG/20 ML VIAL IV ONE (13:39)
[2019-11-29] MEDS ORDERED: fentaNYL 100 MCG/2 ML INJ IV PRN (13:39)
[2019-11-29] MEDS ORDERED: LIDOCAINE MPF (2%) 20 MG/1 ML VIAL 5 ML ONE (13:41)
--- NOTE | 2019-11-29 13:41 | Anesthesia Day of Surgery ---
Anesthesia Day of Surgery - Day of Surgery Patient Examined: Yes Patient H&P Reviewed: Yes Patient is NPO: Yes
--- NOTE | 2019-11-29 13:41 | Anesthesia Consultation ---
Anesthesia Consult and Med Hx Date of service: 11/29/19 - Airway Anesthetic Teeth Evaluation: Partials ROM Head & Neck: Adequate Mental/Hyoid Distance: Adequate Mallampati Class: Class II Intubation Access Assessment: Probably Good (previous easy intubation w/ MAC 3) - Pulmonary Exam CTA: Yes - Cardiac Exam Cardiac Exam: RRR - Pre-Operative Health Status ASA Pre-Surgery Classification: ASA3 Proposed Anesthetic Plan: General - Pulmonary Hx Respiratory Symptoms: No - Cardiovascular System Hx Hypertension: No Hx Heart Attack/AMI: No - Central Nervous System CVA: No - Gastrointestinal Hx Gastroesophageal Reflux Disease: No - Endocrine Hx Renal Disease: No Hx Liver Disease: No Hx Insulin Dependent Diabetes: No Hx Non-Insulin Dependent Diabetes: No Hx Thyroid Disease: No - Other Systems Hx Alcohol Use: Yes (OCCA) Hx Substance Use: No Hx Cancer: Yes (Breast Ca no chemo since last surgery in 08/2019) Hx Obesity: Yes (BMI 53) - Additional Comments Anesthesia Medical History Comments: No hx anesthetic complications.
[2019-11-29] MEDS ORDERED: SODIUM CHLORIDE 0.9% 1000 ML 1,000 ML ONE (13:53)
[2019-11-29] MEDS ORDERED: ceFAZolin 1 GM VIAL ONE ×2 (13:53→15:06)
[2019-11-29] MEDS ORDERED: BACITRACIN 50,000 UNIT VIAL ONE (13:53)
[2019-11-29] MEDS ORDERED: GENTAMICIN 40 MG/ML VIAL 2 ML ONE (13:53)
[2019-11-29] MEDS ORDERED: SODIUM CHLORIDE P/F VIAL 10 ML 20 ML ONE (13:54)
[2019-11-29] MEDS ORDERED: METHYLENE BLUE 50 MG/10 ML AMP ONE (13:54)
[2019-11-29] MEDS ORDERED: GABAPENTIN 300 MG CAP PO NR (14:00)
[2019-11-29] MEDS ORDERED: ceFAZolin/STERILE WATER 2 GM/20 ML SYRINGE IV NR (14:00)
[2019-11-29] MEDS ORDERED: CELECOXIB 200 MG CAP PO NR (14:00)
[2019-11-29] MEDS ORDERED: MIDAZOLAM 2 MG/2 ML INJ IV NR (14:00)
[2019-11-29] MEDS ORDERED: LACTATED RINGERS 1,000 ML IV SCH (14:00)
[2019-11-29] MEDS ORDERED: PHENYLEPHRINE/NS 1,000 MCG/10 ML SYRINGE (OR USE) IV ONE (14:54)
[2019-11-29] MEDS ORDERED: LIDOCAINE 1%/EPINEPHRINE 1:100,000 VIAL (20 ML) INFILTRATI ONE ×2 (14:57→15:41)
[2019-11-29] MEDS ORDERED: SODIUM CHLORIDE 0.9% IRRIG SOLN 2000 ML IR ONE (15:40)
[2019-11-29] MEDS ORDERED: BACITRACIN 50,000 UNIT VIAL IR ONE (15:41)
[2019-11-29] MEDS ORDERED: ceFAZolin 1 GM VIAL IV ONE (15:42)
[2019-11-29] MEDS ORDERED: SODIUM CHLORIDE 0.9% IRR 1,500 ML BOTTLE IR ONE ×2 (15:42)
[2019-11-29] MEDS ORDERED: LACTATED RINGERS 1,000 ML ONE (16:05)
[2019-11-29] MEDS ORDERED: SODIUM CHLORIDE 0.9% 1000 ML IV SOLN IR ONE (16:15)
[2019-11-29] MEDS ORDERED: METHYLENE BLUE 50 MG/10 ML AMP IRRIGATION ONE (16:16)
[2019-11-29] MEDS ORDERED: ONDANSETRON 4 MG/2 ML INJ IV ONE (17:41)
[2019-11-29] MEDS ORDERED: ONDANSETRON 4 MG/2 ML INJ ONE (17:41)
--- NOTE | 2019-11-29 17:42 | Operative Report ---
Operative Report Operative Report: Plastic Surgery Operative Note Preoperative diagnosis: Open wound of the bilateral reconstructed breasts, sta tus post bilateral mastectomy with immediate reconstruction with tissue expanders and Flex HD. Postoperative diagnosis: Same Procedure: Bilateral breast open wound excisional debridement; implant pocket washout; removal and replacement of tissue expanders Surgeon: Dr. Allyson Knapp Asst.: None Anesthesia: general Indications: This patient is a 58-year-old -[place] female who had undergone a bilateral mastectomy with Dr. Lore Gross followed by immediate reconstruction with tissue expanders and Flex HD. She had an unremarkable postoperative recovery course until last week when she noted tenting of skin of the left breast. Of note, recently, she began a rigorous physical therapy course of rehabilitation to regain strength of her upper extremities after her surgery. She noted that she was given exercises as well as massage as performed by the therapist directly on her operative sites. The patient states that the tenting began after her physical therapy session, and later she noticed that the left breast incision was opened and the tissue correspondence school teacher was visible underneath. After getting in contact with me and making plans for a trip to the operating room to salvage the reconstruction, patient noted that the same exact thing occurred on the right side 2 days later. She was already on antibiotics which she was instructed to continue and plans were made to return to the operating room for debridement of both wounds, washout of the implant pocket and replacement of tissue expanders with new ones. Seizure: After review of pertinent history and physical exam findings the patient was brought into the operating room and placed supine on the OR table. After induction of adequate general anesthesia, the entire chest was prepped with Betadine and draped in the usual sterile surgical fashion. To begin, on the right side, the existing wound was marked along its margins and sharply excised in an elliptical fashion, removing 2 slivers of right breast skin which was sent for pathology. The new opening now measured 6 x 5 cm. This was used to remove the old correspondence school teacher which was found to be intact and access the implant pocket which was noted to be clean without evidence of infection with well incorporated Flex HD. Electrocautery was used to perform capsulotomies to accommodate the new implant and hemostasis was also achieved with electrocautery. The implant pocket was then thoroughly irrigated with 500 mL of bacitracin saline using pulse lavage and this was followed by irrigation with triple antibiotic solution before a 19 Serbian drain was placed in the implant pocket exiting the right lateral breast. This was secured with a 2-0 nylon stitch. The tissue correspondence school teacher, which was 850 mL Sigel was placed within the implant pocket and filled with 200 mL of methylene blue dyed saline. We then began a 3 layer closure with 2-0 Monocryl and 2 layers of 3-0 Monoderm Quill placed in a running fashion. The exact same procedure was repeated on the left side and, once closed, all incisions were sealed with Dermabond followed by Telfa and Tegaderm dressings. Drains were placed to bulb suction and noted to be functional. She was then awakened from general anesthesia and transferred to recovery room in stable condition. There were no complications. Patient tolerated the procedure well. All sponge needle and instrument counts were correct case.
[2019-11-29 18:33] VITALS: BP 120/62
[2019-11-29] MEDS ORDERED: METOCLOPRAMIDE 10 MG/2 ML INJ IV ONE (19:00)
--- NOTE | 2019-11-29 19:39 | Post Anesthesia Evaluation ---
- Post Anesthesia Evaluation Patient Participated: Yes Airway Patent: Yes Stable Respiratory Function: Yes Nausea/Vomiting: Yes (improved with IV antiemetics) Temp > 96.8F: Yes Pain Manageable: Yes Adequeate Hydration: Yes Anesthesia Complications: No
== END 2019-11-29 19:40 | disposition home or self-care (01) ==
LOC: OR 12:34
PROVIDERS: ATTEND Plastic Surgery
DX: S21.002A Unspecified open wound of left breast, initial encounter (principal); S21.001A Unspecified open wound of right breast, initial encounter; C50.411 Malignant neoplasm of upper-outer quadrant of right female breast; L08.89 Other specified local infections of the skin and subcutaneous tissue; E66.01 Morbid (severe) obesity due to excess calories; Z90.13 Acquired absence of bilateral breasts and nipples; Z88.5 Allergy status to narcotic agent; Z79.899 Other long term (current) drug therapy; Z68.43 Body mass index [BMI] 50.0-59.9, adult; Z90.710 Acquired absence of both cervix and uterus; Z98.891 History of uterine scar from previous surgery; Z72.89 Other problems related to lifestyle; Z98.890 Other specified postprocedural states
CPT/HCPCS: 11970; 88302; 88305; A4217; C1789; J0690; J1170; J1580; J2370; J2405; J2704; J2765; J7030; J7120; Q9968

== ENCOUNTER 2020-01-17 09:24 | Day surgery (SDC) | payer OTHER ==
[~2020-01-17 09:24] MED LIST changes: -ANCEF/STERILE WATER 2 GM/20 ML 2 GM/20 ML SYRINGE IV NR; -GABAPENTIN PO NR; -LACTATED RINGERS 1,000 ML IV SCH; -SUBLIMAZE IV PRN; -VERSED IV NR; +ceFAZolin/Water 2 GM/20 ML 2 GM/20 ML SYRINGE IV NR
[2020-01-17] MEDS ORDERED: fentaNYL 100 MCG/2 ML INJ ONE (09:27)
[2020-01-17] MEDS ORDERED: LIDOCAINE MPF (2%) 20 MG/1 ML VIAL 5 ML ONE (09:27)
[2020-01-17] MEDS ORDERED: propofoL 200 MG/20 ML VIAL IV ONE ×2 (09:28→12:55)
--- NOTE | 2020-01-17 09:58 | Anesthesia Consultation ---
Anesthesia Consult and Med Hx Date of service: 01/17/20 - Airway Anesthetic Teeth Evaluation: Partials ROM Head & Neck: Adequate Mental/Hyoid Distance: Adequate Mallampati Class: Class I Intubation Access Assessment: Good (previous easy intubation w/ MAC 3) - Pulmonary Exam CTA: Yes - Cardiac Exam Cardiac Exam: RRR - Pre-Operative Health Status ASA Pre-Surgery Classification: ASA3 Proposed Anesthetic Plan: General - Pulmonary Hx Smoking: No Hx Respiratory Symptoms: No - Cardiovascular System Hx Hypertension: No Hx Heart Attack/AMI: No Hx Percutaneous Transluminal Coronary Angioplasty (PTCA): No - Central Nervous System CVA: No - Gastrointestinal Hx Gastroesophageal Reflux Disease: No - Endocrine Hx Renal Disease: No Hx Liver Disease: No Hx Insulin Dependent Diabetes: No Hx Non-Insulin Dependent Diabetes: No Hx Thyroid Disease: No - Other Systems Hx Alcohol Use: Yes (OCCA) Hx Substance Use: No Hx Cancer: Yes (breast Ca) Hx Obesity: Yes (BMI 49) - Additional Comments Anesthesia Medical History Comments: Hx PONV w/ most recent anesthetic.
--- NOTE | 2020-01-17 09:58 | Anesthesia Day of Surgery ---
Anesthesia Day of Surgery - Day of Surgery Patient Examined: Yes Patient H&P Reviewed: Yes Patient is NPO: Yes
[2020-01-17] MEDS ORDERED: GABAPENTIN 300 MG CAP PO NR (10:00)
[2020-01-17] MEDS ORDERED: CELECOXIB 200 MG CAP PO NR (10:00)
[2020-01-17] MEDS ORDERED: LACTATED RINGERS 1,000 ML IV SCH (10:00)
[2020-01-17] MEDS ORDERED: fentaNYL 100 MCG/2 ML INJ IV PRN (10:00)
[2020-01-17] MEDS ORDERED: MAGNESIUM OXIDE 400 MG TAB PO NR (10:00)
[2020-01-17] MEDS ORDERED: SCOPOLAMINE TRANSDERMAL PATCH 72 HR TD NR (10:00)
[2020-01-17 10:34] LABS: Basophils # (Auto) 0.1 K/mm3 (0.0-0.1); Basophils % (Auto) 1.9 % (0.0-1.8); Eosinophils # (Auto) 0.1 K/mm3 (0.0-0.4); Eosinophils % (Auto) 2.7 % (0.0-4.3); Hematocrit 31.9 % (30.3-42.9); Hemoglobin 10.2 gm/dl (10.1-14.3); Lymphocytes # (Auto) 1.3 K/mm3 (1.2-5.4); Lymphocytes % (Auto) 26.6 % (13.4-35.0); Mean Corpuscular HGB Conc 32 % (30-34); Mean Corpuscular Volume 78 fl (79-97); Monocytes # (Auto) 0.4 K/mm3 (0.0-0.8); Monocytes % (Auto) 7.6 % (0.0-7.3); Platelet Count 422 K/mm3 (140-440); Red Blood Count 4.09 M/mm3 (3.65-5.03); Red Cell Distribution Width 17.5 % (13.2-15.2)
[2020-01-17] MEDS ORDERED: LIDOCAINE 1%/EPINEPHRINE 1:100,000 VIAL (20 ML) INFILTRATI ONE ×4 (10:51→12:19)
[2020-01-17] MEDS ORDERED: SODIUM CHLORIDE 0.9% IRR 1,500 ML BOTTLE IR ONE (11:39)
[2020-01-17] MEDS ORDERED: ONDANSETRON 4 MG/2 ML INJ ONE (13:35)
[2020-01-17] MEDS ORDERED: PHENYLEPHRINE/NS 1,000 MCG/10 ML SYRINGE (OR USE) IV ONE (13:36)
[2020-01-17] MEDS ORDERED: dexAMETHasone 20 MG/5 ML VIAL ONE (13:36)
[2020-01-17 15:08] VITALS: BP 137/66
--- NOTE | 2020-01-17 17:38 | Post Anesthesia Evaluation ---
- Post Anesthesia Evaluation Patient Participated: Yes Airway Patent: Yes Stable Respiratory Function: Yes Nausea/Vomiting: No Temp > 96.8F: Yes Pain Manageable: Yes Adequeate Hydration: Yes Anesthesia Complications: No Block Receding Appropriately: Not Applicable Patient on Ventilator: No
--- NOTE | 2020-01-19 16:56 | Operative Report ---
Operative Report Operative Report: Plastic Surgery Operative Report Preoperative Diagnosis: Acquired absence of the bilateral breasts s/p Tissue Construction Assistant reconstruction now with right breast cellulitis; open wound of the left breast with tissue scholarship counselor exposure. Postoperative Diagnosis: Same Procedure: Excisional debridement of left breast wound; removal of tissue scholarship counselor and scar revision; Left breast removal of tissue scholarship counselor and lateral scar revision. Surgeon: Allyson Knapp MD Car Dispatcher: None Anesthesia: General Specimens: swab cultures; right and left breast skin; tissue scholarship counselor. EBL: Minimal Indications: This patient is a 59 year old female who underwent bilateral breast reconstruction immediately following mastectomy with a tissue scholarship counselor Flex HD. Over the weekend she noticed that her left breast incision was open, and her tissue scholarship counselor was visible underneath. She was instructed to cover the wound with sterile gauze and come into clinic on Friday. The next day her incision opened all the way up and the tissue scholarship counselor came out competely. This being her second round of having implant exposure on the left side, we discussed her options which included a bilateral flap reconstruction, versus removal of tissue expanders and allowing time to heal with a plan to revisit reconstruction later. Patient opted for the second option and she was scheduled for excisional debridement of the left breast wound with removal of both tissue expanders and bilateral lateral scar revision we discussed the plan for future reconstruction at length with the patient and her daughter. Informed consent was obtained. Procedure: After review of pertinent history and physical exam findings patient was brought into the operating room and placed supine on the OR table. After induction of adequate endotracheal anesthesia the bilateral breasts were prepped and draped in the usual sterile surgical fashion. To begin, on the right breast, marking pen was used to delineate the dogear portion of the right lateral breast scar that was hanging down after her mastectomy causing deformity. This ellipse was injected with 1% lidocaine with epinephrine for hemostasis and using a #10 blade left breast scar was excised through skin and subcutaneous tissue. Using electrocautery, hemostasis was obtained. The same incision was used to access the subpectoral implant pocket which was open, and an intact tissue scholarship counselor was removed. Next, a sharp curette was used to remove rind within the implant pocket and it was then thoroughly irrigated with triple antibiotic solution. A 19 Albanian Stuart drain was then placed in the implant pocket and we began our closure over the drain in 3 layers with 2-0 Monocryl followed by 2 layers of 3-0 [facility] Derm Quill. On the left side, using the existing open wound, marking pen was used to delineate the fibrotic skin edges that were to be excised as well as the lateral breast scar that was to be excised which was causing deformity. Similar to the right side, a 10 blade was used to excise the aforementioned skin and electrocautery was used for hemostasis. Since the implant had already fallen out, a curette was used to remove the subpectoral rind that was formed and thorough irrigation was also done with triple antibiotic solution. A 19 Albanian Stuart drain was placed and the incision was closed in 3 layers using a 3-0 Monocryl Quill and 2-0 Monocryl suture. The incisions were then sealed with Dermabond and dressed with Telfa and tegaderm and the drain placed to suction. A surgical bra was placed. The patient was then awakened from general anesthesia and transferred to the recovery room in stable condition. There were no complications. All sponge needle and instrument counts were correct at the end of the case.
== END 2020-01-17 09:25 | disposition home or self-care (01) ==
LOC: OR 09:24
PROVIDERS: ATTEND Plastic Surgery
DX: T85.42XA Displacement of breast prosthesis and implant, initial encounter (principal); C50.411 Malignant neoplasm of upper-outer quadrant of right female breast; E66.01 Morbid (severe) obesity due to excess calories; Z68.42 Body mass index [BMI] 45.0-49.9, adult; Z90.710 Acquired absence of both cervix and uterus; Z98.891 History of uterine scar from previous surgery; Z72.89 Other problems related to lifestyle; Z98.890 Other specified postprocedural states; Z90.13 Acquired absence of bilateral breasts and nipples; Z88.5 Allergy status to narcotic agent; Z79.899 Other long term (current) drug therapy; Y83.8 Other surgical procedures as the cause of abnormal reaction of the patient, or of later complication, without mention of misadventure at the time of the procedure; Y92.89 Other specified places as the place of occurrence of the external cause
CPT/HCPCS: 19371; 36415; 85025; 87075; 87076; 87116; 87186; 88302; 88305; J0690; J1100; J2370; J2405; J2704; J3010; J7120

== ENCOUNTER 2020-10-03 06:42 | Day surgery (SDC) | payer OTHER ==
[2020-09-28 09:45] LABS: Mean Corpuscular HGB Conc 30 % (30-34); Mean Corpuscular Volume 96 fl (79-97); Platelet Count 210 K/mm3 (140-440); Red Blood Count 4.46 M/mm3 (3.65-5.03); Red Cell Distribution Width 14.7 % (13.2-15.2)
[2020-09-28 09:47] LABS: Hematocrit 42.8 % (30.3-42.9)
[~2020-10-03 06:42] MED LIST changes: +BUPIVACAINE/PF (0.5%) 5 MG/1 ML 30 ML VIAL INFILTRATI ONE; +LIDOCAINE (1%) 10 MG/1 ML VIAL 20 ML MDV ONE
[2020-10-03] MEDS ORDERED: LACTATED RINGERS 1,000 ML IV SCH (07:00)
[2020-10-03] MEDS ORDERED: BACTERIOSTATIC SODIUM CHLORIDE 0.9% 30 ML VIAL INFILTRATI ONE (07:02)
[2020-10-03] MEDS ORDERED: HYDROmorphone 1 MG/1 ML INJ IV PRN ×2 (07:21)
[2020-10-03] MEDS ORDERED: ONDANSETRON 4 MG/2 ML INJ IV PRN (07:21)
--- NOTE | 2020-10-03 07:27 | Anesthesia Consultation ---
Anesthesia Consult and Med Hx Date of service: 10/03/20 - Airway Anesthetic Teeth Evaluation: Good, Partials ROM Head & Neck: Adequate Mental/Hyoid Distance: Adequate Mallampati Class: Class II Intubation Access Assessment: Good - Pre-Operative Health Status ASA Pre-Surgery Classification: ASA3 Proposed Anesthetic Plan: General - Pulmonary Hx Smoking: No Hx Asthma: No Hx Respiratory Symptoms: No (+2FS) COPD: No Hx Pneumonia: No Hx Sleep Apnea: No (RAY PRE SCREEN HIGH RISK) - Cardiovascular System Hx Hypertension: No Hx Heart Attack/AMI: No Hx Percutaneous Transluminal Coronary Angioplasty (PTCA): No Hx Cardia Arrhythmia: No Hx Valvular Heart Disease: No (MUGA TESTING 01/2018) - Central Nervous System Hx Neuromuscular Disorder: No CVA: No Hx Psychiatric Problems: No - Gastrointestinal Hx Gastroesophageal Reflux Disease: No - Endocrine Hx Renal Disease: No Hx End Stage Renal Disease: No Hx Liver Disease: No Hx Insulin Dependent Diabetes: No Hx Non-Insulin Dependent Diabetes: No Hx Thyroid Disease: No - Hematic Hx Anemia: Yes Hx Sickle Cell Disease: No - Other Systems Hx Alcohol Use: Yes (OCCA) Hx Substance Use: No Hx Cancer: Yes (breast Ca) Hx Obesity: Yes (BMI 49)
--- NOTE | 2020-10-03 07:27 | Anesthesia Day of Surgery ---
Anesthesia Day of Surgery - Day of Surgery Patient Examined: Yes Patient H&P Reviewed: Yes Patient is NPO: Yes
[2020-10-03] MEDS ORDERED: GABAPENTIN 300 MG CAP PO NR (08:00)
[2020-10-03] MEDS ORDERED: MAGNESIUM OXIDE 400 MG TAB PO ONE (08:00)
[2020-10-03] MEDS ORDERED: ACETAMINOPHEN 325 MG TAB PO ONE (08:00)
[2020-10-03] MEDS ORDERED: MIDAZOLAM 2 MG/2 ML INJ IV NR (08:00)
[2020-10-03] MEDS ORDERED: CELECOXIB 200 MG CAP PO NR (08:00)
[2020-10-03 08:06] LABS: BUN/Creatinine Ratio 21; Blood Urea Nitrogen 15 mg/dL (7-17); Calcium 9.3 mg/dL (8.4-10.2); Hemolysis Index 8
[2020-10-03] MEDS ORDERED: LIDOCAINE MPF (2%) 20 MG/1 ML VIAL 5 ML ONE (09:05)
[2020-10-03] MEDS ORDERED: ROCURONIUM 50 MG/5 ML INJ IV ONE (09:05)
[2020-10-03] MEDS ORDERED: HYDROmorphone 1 MG/1 ML INJ ONE ×2 (09:05→10:49)
[2020-10-03] MEDS ORDERED: propofoL 200 MG/20 ML VIAL IV ONE (09:05)
[2020-10-03] MEDS ORDERED: ONDANSETRON 4 MG/2 ML INJ ONE (09:05)
[2020-10-03] MEDS ORDERED: dexAMETHasone 20 MG/5 ML VIAL ONE (09:06)
[2020-10-03] MEDS ORDERED: ePHEDrine SULFATE 50 MG/1 ML INJ ONE (09:58)
[2020-10-03] MEDS ORDERED: NEOSTIGMINE 10MG/10 ML INJ MDV ONE (10:00)
[2020-10-03] MEDS ORDERED: GLYCOPYRROLATE 0.4 MG/2 ML INJ ONE (10:00)
[2020-10-03] MEDS ORDERED: LIDOCAINE (1%) 10 MG/1 ML VIAL 20 ML MDV INFILTRATI ONE (10:34)
[2020-10-03] MEDS ORDERED: BUPIVACAINE/PF (0.5%) 5 MG/1 ML 30 ML VIAL INFILTRATI ONE ×3 (10:34→11:39)
--- NOTE | 2020-10-03 11:58 | Short Stay Summary ---
Short Stay Documentation Date of service: 10/03/20 - History Principal diagnosis: porcelain gallbladder, cholelithiasis H&P: obtained from office - Allergies and Medications Current Medications: Allergies codeine Adverse Reaction (Severe, Verified 01/13/20 12:58) Nausea/Vomiting Home Medications Medication Instructions Recorded Confirmed Last Taken Type Ergocalciferol [Vitamin D2] 50,000 unit PO QWEEK 01/13/20 08/24/20 10/02/20 09:30 History Anastrozole [Arimidex] 1 mg PO DAILY 08/24/20 08/24/20 10/02/20 09:30 History Calcium Carbonate [Calcium 600MG 600 mg PO DAILY 08/24/20 08/24/20 10/02/20 09:30 History TAB] Active Medications Celecoxib (Celebrex) 200 mg PO PREOP NR Stop: 10/03/20 23:59 Last Admin: 10/03/20 07:53 Dose: 200 mg Documented by: Gabapentin (Gabapentin) 300 mg PO PREOP NR Stop: 10/03/20 23:59 Last Admin: 10/03/20 07:53 Dose: 300 mg Documented by: Hydromorphone HCl (Dilaudid) 0.25 mg IV Q10MIN PRN PRN Reason: Pain, Moderate (4-6) Hydromorphone HCl (Dilaudid) 0.5 mg IV Q10MIN PRN PRN Reason: Pain , Severe (7-10) Cefazolin Sodium 3 gm/ Sodium (Chloride) 100 mls @ 200 mls/hr IV ONCE MIGEL Stop: 10/03/20 21:00 Lactated Ringer's (Lactated Ringers) 1,000 mls @ 100 mls/hr IV DIRECT MIGEL Last Admin: 10/03/20 07:35 Dose: 100 mls/hr Documented by: Midazolam HCl (Versed) 2 mg IV PREOP NR Stop: 10/03/20 23:59 Ondansetron HCl (Zofran) 4 mg IV ONCE PRN PRN Reason: Nausea And Vomiting - Brief post op/procedure progress note Date of procedure: 10/03/20 Pre-op diagnosis: porcelain gallbladder, cholelithiasis Post-op diagnosis: same Procedure: laparoscopic cholecystectomy, lysis of adhesions Anesthesia: GETA, local Findings: 1. Small bowel and omental adhesions to anterior abdominal wall in midline and right abdomen 2. Gallbladder with moderate size stone near neck Surgeon: SIVA MORATAYA (Micheline Posada, TALENT ACQUISITION LEAD) Estimated blood loss: minimal Pathology: list (gallbladder) Specimen disposition: to lab Condition: stable - Hospital course Hospital course: Pt observed in PACU and discharged to home in stable condition when criteria met - Disposition Condition at discharge: Good Disposition: DC-01 TO HOME OR SELFCARE Short Stay Discharge Plan Activity: other (no heavy lifting x 2 weeks) Diet: low fat Wound: open to air Additional Instructions: See printed discharge instructions Follow up with: PRIMARY CARE,MD [Primary Care Provider] - 7 Days SIVA MORATAYA DO [Staff Physician] - 14 Days Prescriptions: HYDROcodone/APAP 5-325 [[place] 5/325] 1 each PO Q6HR PRN #20 tablet PRN Reason: Pain , Severe (7-10)
[2020-10-03] MEDS ORDERED: HYDROmorphone 2 MG TAB PO PRN (13:00)
--- NOTE | 2020-10-03 13:12 | Post Anesthesia Evaluation ---
- Post Anesthesia Evaluation Patient Participated: Yes Airway Patent: Yes Stable Respiratory Function: Yes Nausea/Vomiting: Yes Temp > 96.8F: Yes Pain Manageable: Yes Adequeate Hydration: Yes Anesthesia Complications: Yes (Required Ambu in PACU) Block Receding Appropriately: No Patient on Ventilator: No
[2020-10-03 13:33] VITALS: BP 136/69
--- NOTE | 2020-10-04 10:39 | Operative Report ---
Operative Report Operative Report: Date of procedure: 10/03/20 Pre-op diagnosis: porcelain gallbladder, cholelithiasis Post-op diagnosis: same Procedure: laparoscopic cholecystectomy, lysis of adhesions Anesthesia: GETA, local Findings: 1. Small bowel and omental adhesions to anterior abdominal wall in midline and right abdomen 2. Gallbladder with moderate size stone near neck Surgeon: SIVA MORATAYA (Micheline Posada, EXPEDITER SERVICE ORDER) Estimated blood loss: minimal Pathology: list (gallbladder) Specimen disposition: to lab Condition: stable Hospital course: Pt observed in PACU and discharged to home in stable condition when criteria met HPI an indication: 59-year-old female with a history of breast cancer status post bilateral mastectomy and full course of chemotherapy who was referred to surgery clinic for abnormal gallbladder on PET scan. 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 Patient also complained of right upper quadrant pain along with nausea intermittently with fried and fatty foods. It was recommended the patient undergo cholecystectomy. All risk, benefits, alternatives surgery discussed patient questions answered. Consent was obtained. Procedure in detail: The patient was identified in the preoperative area and taken back to the operating room, placed on the operating room table in supine position. After anesthesia was induced, the abdomen was prepped and draped in usual sterile fashion and timeout was performed. Local anesthetic was infiltrated into all of the skin incision sites. Patient has a history of a open hysterectomy with a midline incision extending above the umbilicus. Therefore it was decided to gain access to the abdomen via a rupa incision in the left upper quadrant at Brdiges's point. Regular size Veress needle was inserted through the incision and advanced in the usual fashion. Positioning was confirmed using saline drop test and attempt was made to insufflate the abdomen. Insufflation pressures were high and it was evident that just the preperitoneal space was being insufflated and therefore the Veress needle was removed. 2 additional attempts were made, one with the longer Veress needle. These attempts were also unsuccessful. Therefore was decided to perform a cutdown at the umbilicus. An incision was made superior to the umbilicus using 11 blade and dissection carried down through skin subcutaneous tissue using Bovie electrocautery. Due to the patient's body habitus, obesity the fascia was quite deep. The fascia was grasped between 2 Amanda's and tented upwards. This was incised using Metzenbaum scissors and the posterior fascia was visualized. The posterior fascia was grasped between 2 Amanda's and tented upwards. This was incised with Metzenbaum scissors very carefully and the abdomen was entered. Entrance into the abdomen was confirmed using a gloved finger. A 5 mm port was inserted and the abdomen insufflated to 15mmHg. The abdomen was then inspected and there was no underlying injury to any of the abdominal structures. The area of attempted veress needle insertion was visualized and there was no break in the peritoneum. Upon inspection of the abdomen there were adhesions from the omentum and the small bowel to the anterior abdominal wall in the midline. The patient was placed in reverse Trendelenburg and tilted to the left. An epigastric 12 mm trocar and 2 right upper quadrant 5 mm trochars were able to be placed under direct visualization. A lysis of adhesions was then undertaken in order to free up midline adhesions to identify the supraumbilical port which was obscured by the adhesions. The lysis of adhesions took approximately 25 minutes. The adhesions were freed using a combination of sharp dissection with EndoShears and blunt dissection. Once the port was visualized and free from surrounding adhesions, I proceeded with cholecystectomy. The gallbladder was visualized. A mobile stone was palpated near the neck of the gallbladder. The gallbladder was grasped and lifted cephalad and above the liver. The cystic duct and artery were then carefully dissected and the critical view obtained, and the cystic duct and artery were the only two structures seen entering the gallbladder. Three clips were then placed on the proximal aspect of the cystic duct and one clip distally, and 2 clips on the cystic artery proximally and one distal. The cystic duct and cystic artery were then transected in between the clips. The gallbladder was dissected off the liver bed using hook electrocautery. The gallbladder was placed into a Endo Catch bag and removed from the abdomen via the 12mm port. The gallbladder fossa was then inspected and there was no identifiable bleeding or bile leakage. Hemostasis was ensured. The clips on the cystic duct and artery were visualized and intact. However, the clips on the cystic duct did not appear to go completely across. Therefore a Vicryl Endoloop was applied just proximal to the clips. The patient was then placed into neutral position. The 12 mm port fascia and the fascia at the umbilical incision was closed with interrupted 0 Vicryl sutures. The remaining ports were removed under direct visualization. Skin incisions were closed with 4-0 Monocryl subcuticular stitches and skin glue. All skin incisions were once again infiltrated with local anesthetic. At the end case all sponge, instrument, sharp counts were correct 2. The patient was awoken from anesthesia, extubated, taken to PACU in stable condition. The case was made more complex due to the patient's body habitus and adhesions present in the surgical field.
== END 2020-10-03 14:30 | disposition home or self-care (01) ==
LOC: OR 06:42
PROVIDERS: ATTEND Surgery
DX: K80.10 Calculus of gallbladder with chronic cholecystitis without obstruction (principal); Z20.828 Contact with and (suspected) exposure to other viral communicable diseases; K82.8 Other specified diseases of gallbladder; K66.0 Peritoneal adhesions (postprocedural) (postinfection); E66.01 Morbid (severe) obesity due to excess calories; M19.90 Unspecified osteoarthritis, unspecified site; Z98.890 Other specified postprocedural states; Z88.5 Allergy status to narcotic agent; Z79.899 Other long term (current) drug therapy; Z85.3 Personal history of malignant neoplasm of breast; Z68.42 Body mass index [BMI] 45.0-49.9, adult; Z90.13 Acquired absence of bilateral breasts and nipples; Z98.891 History of uterine scar from previous surgery; Z90.710 Acquired absence of both cervix and uterus; Z72.89 Other problems related to lifestyle
CPT/HCPCS: 36415; 47562; 80048; 85027; 88304; J0690; J1100; J1170; J2405; J2704; J2710; J7120; U0003

== ENCOUNTER 2020-11-03 06:47 | Day surgery (SDC) | payer OTHER ==
[2020-11-03] MEDS ORDERED: BUPIVACAINE/PF (0.25%) 2.5 MG/ML 30 ML VIAL INFILTRATI ONE (06:52)
[2020-11-03] MEDS ORDERED: LIDOCAINE (1%) 10 MG/1 ML VIAL 20 ML MDV ONE (06:52)
[2020-11-03 07:20] VITALS: BP 139/54
[2020-11-03] MEDS ORDERED: BUPIVACAINE/PF (0.25%) 2.5 MG/ML 10 ML VIAL INFILTRATI ONE (07:43)
[2020-11-03] MEDS ORDERED: LIDOCAINE (1%) 10 MG/1 ML VIAL 20 ML MDV INFILTRATI ONE (07:43)
--- NOTE | 2020-11-03 13:02 | Procedure Note ---
Date of procedure: 11/03/20 Pre-op diagnosis: breast cancer Post-op diagnosis: same Procedure: removal of left sided infusaport Findings: HPI and indication: Patient is a 59-year-old female with breast cancer who underwent port placement and chemotherapy. She is completed her chemotherapy treatment and port cannot be removed. All risk, benefits, alternatives to port removal were discussed with the patient and questions answered. Consent was obtained. The patient has a sensitivity to Dermabond. Patient identified and positioned on stretcher in supine position. The left anterior chest was prepped and draped in usual sterile fashion a timeout perfo rmed. Local anesthetic infiltrated to skin and subcutaneous tissue at the intended incision site at the old scar. Using a 15 blade an incision was made through the old scar and subcutaneous tissue. Dissection was carried down through skin and subcutaneous tissue using blunt dissection with a hemostat and electrocautery. The catheter was identified and grasped between 2 hemostats. The catheter was cut in between the hemostats using Metzenbaum scissors. The catheter was removed without difficulty and pressure held at the site for 5 minutes. The subcutaneous port was then dissected free from the capsule using a combination of blunt dissection with a hemostat and electrocautery. The port was then removed from the wound and both parts were passed off the table as a specimen for identification purposes. The wound was irrigated and hemostasis very carefully ensured. The deep dermal layer was then closed with interrupted 3-0 Vicryl stitches. The skin was approximated using 4-0 Monocryl subcuticular running stitch. Steri-Strips were placed across the incision. The incision was then covered with a 4 x 4 gauze and Tegaderm. At the end of the case, all sponge, instrument, sharp counts were correct x2. The patient tolerated the procedure well and was discharged home in stable condition. Anesthesia: local Surgeon: SIVA MORATAYA Estimated blood loss: minimal Pathology: list (subcutaneous port and catheter) Specimen disposition: to lab Condition: stable Disposition: other (HOME)
== END 2020-11-03 08:18 | disposition home or self-care (01) ==
LOC: OR 06:47
PROVIDERS: ATTEND Surgery
DX: Z45.2 Encounter for adjustment and management of vascular access device (principal); C50.411 Malignant neoplasm of upper-outer quadrant of right female breast; K21.9 Gastro-esophageal reflux disease without esophagitis; M19.90 Unspecified osteoarthritis, unspecified site; E66.01 Morbid (severe) obesity due to excess calories; Z88.5 Allergy status to narcotic agent; Z88.8 Allergy status to other drugs, medicaments and biological substances; Z79.899 Other long term (current) drug therapy; Z68.43 Body mass index [BMI] 50.0-59.9, adult; Z90.13 Acquired absence of bilateral breasts and nipples; Z98.891 History of uterine scar from previous surgery; Z98.890 Other specified postprocedural states; Z90.710 Acquired absence of both cervix and uterus; Z72.89 Other problems related to lifestyle
CPT/HCPCS: 88302

== ENCOUNTER 2022-05-14 08:18 | Outpatient (CLI) | payer OTHER | END 2022-05-14 08:19 | disposition home or self-care (01) | LOC: LABHHL 08:18 | PROVIDERS: ATTEND Internal Medicine Hematology & Oncology | DX: C50.411 Malignant neoplasm of upper-outer quadrant of right female breast (principal) | CPT/HCPCS: 36415; 88341; 88342 ==